=== PATIENT | female | born 1945 | race Caucasian/White ===

== ENCOUNTER → 2019-07-23 08:05 | Outpatient (CLI) | payer MEDICARE, SELFPAY ==
[2019-07-23 14:12] LABS: Ferritin 38 ng/mL (8-388)
[2019-07-23 16:06] LABS: Creatinine,Urine Random 59 mg/dL (20-320)
[2019-07-23 17:01] LABS: Total Protein,Urine Random 279.6 mg/dL (0.0-11.9)
[2019-07-24 08:14] LABS: Complement C3 97 mg/dL (82-167); Iron 72 ug/dL (27-139); Iron Saturation 25 % (15-55); Transferrin 232 mg/dL (200-370); UIBC 214 ug/dL (118-369)
[2019-07-24 09:10] LABS: Hep A Ab, IgM Positive (Negative); Hepatitis B Core Antibody IgM Negative (Negative); Hepatitis B Surface Antigen Negative (Negative)
[2019-07-24 18:50] LABS: Hepatitis C Antibody <0.1 s/co ratio (0.0-0.9)
[2019-07-24 18:51] LABS: Anti-DNA (DS) Ab Qn <1 IU/mL (0-9); Antinuclear Antibodies, IFA Positive (.); Antistreptolysin O Ab <20.0 IU/mL (0.0-200.0); Vitamin B12 >2000 pg/mL (232-1245); Vitamin D 25 Hydroxy 12.3 ng/mL (30.0-100.0)
[2019-07-25 19:08] LABS: Hematocrit 20.3 % (34.0-46.6)
[2019-07-25 21:13] LABS: Folate, RBC 1837 ng/mL (>498)
[2019-07-26 13:08] LABS: Albumin 2.7 g/dL (2.9-4.4); Alpha-1-Globulin 0.2 g/dL (0.0-0.4); Alpha-2-Globulin 0.8 g/dL (0.4-1.0); Gamma Globulin 0.9 g/dL (0.4-1.8); Protein, Total 5.6 g/dL (6.0-8.5)
[2019-07-26 15:13] LABS: Cytoplasmic (C-ANCA) <1:20 titer (Neg:<1:20)
[2019-07-27 09:26] LABS: Perinuclear (P-ANCA) <1:20 titer (Neg:<1:20)
== END ==
PROVIDERS: PCP Nurse Practitioner Family; Visit Provider Internal Medicine Nephrology
DX: N18.4 Chronic kidney disease, stage 4 (severe) (principal); D64.9 Anemia, unspecified; E11.65 Type 2 diabetes mellitus with hyperglycemia; R80.9 Proteinuria, unspecified; B15.9 Hepatitis A without hepatic coma; I12.9 Hypertensive chronic kidney disease with stage 1 through stage 4 chronic kidney disease, or unspecified chronic kidney disease
CPT/HCPCS: 36415; 80074; 82570; 82607; 82652; 82728; 82747; 83516; 83540; 83550; 84155; 84165; 84466; 85014; 86038; 86060; 86161; 86225; 86256

== ENCOUNTER → 2019-07-26 07:15 | Outpatient (CLI) | payer MEDICARE, SELFPAY ==
[2019-07-26 15:24] LABS: Occult Blood,Stool Positive (Negative)
== END ==
PROVIDERS: Visit Provider Internal Medicine Nephrology
DX: D64.9 Anemia, unspecified (principal); N18.4 Chronic kidney disease, stage 4 (severe); I10 Essential (primary) hypertension; E11.65 Type 2 diabetes mellitus with hyperglycemia; R80.9 Proteinuria, unspecified
CPT/HCPCS: 82272; G0328